=== PATIENT | male | born 1945 ===

== ENCOUNTER 2018-01-09 17:02 | Emergency (ER) | payer MEDICARE ==
[2018-01-09 17:03] VITALS: BMI 29.6
[2018-01-09] MEDS ORDERED: Sodium Chloride 0.9% 1,000 ML IV ONE (18:18)
--- NOTE | 2018-01-09 18:22 | C.PDOC ---
History Of Present Illness <SumanthShreyasMusa - Last Filed: 01/09/18 18:48> <Sanket Loo E - Last Filed: 01/09/18 19:53> 72 year old male patient presents to the ER with c/o right trapezius pain that radiates to right arm for the past 2 days. Patient states he tried putting patches on with no relief. Patient reports he is retired and denies trauma or lifting using the arm. Patient also denies significant weight changes. Pain is digitally reproducible along with chest wall pain; no trauma in that area as well. (Taye Julio) History Per: Patient History/Exam Limitations: no limitations Onset/Duration Of Symptoms: Days (x2) Current Symptoms Are (Timing): Still Present <SumanthShreyasMusa - Last Filed: 01/09/18 18:48> <Sanket Loo E - Last Filed: 01/09/18 19:53> Time Seen by Provider: 01/09/18 18:11 Chief Complaint (Nursing): Upper Extremity Problem/Injury Past Medical History Reviewed: Historical Data, Nursing Documentation, Vital Signs - Medical History PMH: Asthma, CHF, COPD, Diabetes, Diverticulitis, Emphysema, HTN, Kidney Stones , Peripheral Edema, Chronic Kidney Disease Surgical History: Coronary Stent Family History: States: Unknown Family Hx - Social History Hx Tobacco Use: No Hx Alcohol Use: No Hx Substance Use: No - Immunization History Hx Tetanus Toxoid Vaccination: No Hx Influenza Vaccination: No Hx Pneumococcal Vaccination: No <SumanthTaye - Last Filed: 01/09/18 18:48> Vital Signs: Last Vital Signs Temp 98.1 F 01/09/18 17:12 Pulse 90 01/09/18 17:12 Resp 20 01/09/18 17:12 BP 179/85 H 01/09/18 17:12 Pulse Ox 98 01/09/18 18:49 - [facility] Procedures CORONAR ARTERIOGR-2 CATH (12/01/12) ENDOSC POLYPECTOMY OF LG INTEST (12/19/12) ESOPHAGOGASTRODUODENOSCOPY [EGD] W/CLOSED BIOPSY (11/22/12) EXCISION OF ASCENDING COLON, ENDO (07/28/15) EXCISION OF SIGMOID COLON, ENDO (07/28/15) INSERTION OF ONE VASCULAR STENT (12/01/12) INSRT OF DRUG-ELUTING CORON ARTERY STENTS(S) (12/01/12) LEFT HEART CARDIAC CATH (11/29/12) LT HEART ANGIOCARDIOGRAM (11/29/12) PERCUTANEOUS TRANSLUMINAL CORONARY ANGIOPLASTY [PTCA] (12/01/12) PROCEDURE ON SINGLE VESSEL (12/01/12) Review Of Systems Except As Marked, All Systems Reviewed And Found Negative. Constitutional: Positive for: Other (no significant weight gain or loss) Musculoskeletal: Positive for: Shoulder Pain (right trapezius pain that radiates down the right arm), Other (chest wall pain) <Taye Julio - Last Filed: 01/09/18 18:48> Physical Exam - Physical Exam Appears: Well, Non-toxic, No Acute Distress, Other (elderly) Skin: Normal Color, Warm, Dry Chest: Tenderness (mild tenderness to chest wall pectoral bilaterally; pain in intercostal spaces bilaterally) Cardiovascular: Rhythm Regular Respiratory: Other (CTA bilaterally) Extremity: Tenderness (right trapezius; vague right arm tenderness), Other ( 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 ) Pulses: Left Radial: Normal, Right Radial: Normal Neurological/Psych: Oriented x3, Normal Speech Gait: Steady <Taye Julio E - Last Filed: 01/09/18 18:48> ED Course And Treatment O2 Sat by Pulse Oximetry: 98 (RA) Pulse Ox Interpretation: Normal <Taye Julio - Last Filed: 01/09/18 18:48> - Laboratory Results Result Diagrams: 01/09/18 19:05 01/09/18 19:05 Interpretation Of Abnormal: UTI, urine C&S sent. ECG: Interpreted By Me, Viewed By Me ECG Rhythm: Sinus Rhythm, Nonspecific Changes Rate From EC - Radiology CXR: Viewed By Me, Read By Radiologist CXR Interpretation: Yes: No Acute Disease Progress Note: Pt was christina out to me by Dr. Julio at 7pm to f/up labs and d/c pt home. Pt c/o inability to pull his foreskin back. On exam pt has phymosis. <Sanket Loo E - Last Filed: 01/09/18 19:53> Medical Decision Making <Taye Julio - Last Filed: 01/09/18 18:48> <Sanket Loo E - Last Filed: 01/09/18 19:53> Medical Decision Making: Impression: 72 year old male patient with right trapezius pain that radiates down right arm Plan: -- electrocardiogram -- Blood work -- CXR -- IV fluids -- UA Patient is resting comfortably. Tolerating PO. Patient offered heat treatment, but patient declined. (Taye Julio) Disposition <Taye Julio E - Last Filed: 01/09/18 18:48> Counseled Patient/Family Regarding: Studies Performed, Diagnosis, Need For Followup, Rx Given - Disposition Disposition Time: 19:48 <Sanket Loo E - Last Filed: 01/09/18 19:53> - Disposition Referrals: Carlos Heard MD [Staff Provider] - Zaire Brown MD [Staff Provider] - Disposition: HOME/ ROUTINE Condition: STABLE Additional Instructions: Follow up with your primary doctor and a Urologist within 1 week for further evaluation and treatment. Return to the ER if you develop fever, abdominal pain , scrotal pain, worsening of symptoms or if you have any other concerns. 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 - Scribe Statement The provider has reviewed the documentation as recorded by the Scribe <Taye Julio E - Last Filed: 01/09/18 18:48> <Sanket Loo E - Last Filed: 01/09/18 19:53> - Scribe Statement Mcmahan Do (Taye Julio) Provider Attestation: All medical record entries made by the Scribe were at my direction and personally dictated by me. I have reviewed the chart and agree that the record accurately reflects my personal performance of the history, physical exam, medical decision making, and the department course for this patient. I have also personally directed, reviewed, and agree with the discharge instructions and disposition. (Taye Julio)
[2018-01-09] MEDS ORDERED: Sodium Chloride 0.9% 1,000 ML ONE (18:52)
--- NOTE | 2018-01-09 18:54 | RAD ---
Date of service: 01/09/2018 HISTORY: SOB COMPARISON: Chest radiograph dated 09/08/2013. TECHNIQUE: Chest PA and lateral FINDINGS: LUNGS: No active pulmonary disease. PLEURA: No significant pleural effusion identified. No pneumothorax apparent. CARDIOVASCULAR: Atherosclerotic aortic calcifications. Cardiomediastinal silhouette within normal limits. OSSEOUS STRUCTURES: Unchanged. VISUALIZED UPPER ABDOMEN: Normal. OTHER FINDINGS: None. IMPRESSION: No active disease.
[2018-01-09 19:09] LABS: BASO # 0.1 K/uL (0.0-0.2); BASO % 0.9 % (0.0-2.0); EOS # 0.4 K/uL (0.0-0.7); EOS % 4.7 % (0.0-4.0); LYMPH # 2.4 K/uL (1.0-4.3); LYMPH % 28.4 % (20.0-40.0); MEAN CELL VOLUME 80.4 fL (80.0-94.0); MEAN CORPUSCULAR HEMOGLOBIN 27.3 pg (27.0-31.0); MEAN CORPUSCULAR HGB CONC 33.9 g/dL (33.0-37.0); MEAN PLATELET VOLUME 8.6 fL (7.2-11.7); MONO # 0.9 K/uL (0.0-0.8); NEUT # 4.8 K/uL (1.8-7.0); NRBC % 0.7 % (0.0-2.0); RBC 5.85 Mil/uL (4.40-5.90); RED CELL DISTRIBUTION WIDTH 14.7 % (11.5-14.5); WHITE BLOOD COUNT 8.6 K/uL (4.8-10.8)
[2018-01-09 19:15] LABS: SQUAMOUS EPITHIAL 8 /hpf (0-5); URINE BACTERIA RARE (<OCC); URINE BILIRUBIN NEGATIVE (NEGATIVE); URINE BLOOD NEGATIVE (NEGATIVE); URINE CLARITY Hazy (Clear); URINE COLOR Yellow (YELLOW); URINE GLUCOSE (UA) 3+ mg/dL (Normal); URINE LEUKOCYTE ESTERASE 3+ Leu/uL (Negative); URINE PROTEIN NEGATIVE (NEGATIVE)
[2018-01-09 19:20] LABS: ALB/GLOB RATIO 1.3 (1.0-2.1); ALT/SGPT 23 U/L (21-72); AST/SGOT 17 U/L (17-59); BLOOD UREA NITROGEN 8 mg/dL (9-20); CALCIUM 9.2 mg/dl (8.6-10.4); GFR AFRICAN-AMERICAN > 60; GFR NON-AFRICAN AMERICAN > 60
[2018-01-09 19:32] LABS: B-TYPE NATRIURETIC PEPTIDE 108 pg/mL (0-900)
[2018-01-09 20:14] VITALS: BP 188/90; PULSE 78; RESP 18; TEMP 98.9; O2SAT 99
--- NOTE | 2018-01-13 14:48 | CARD ---
APPROVED REPORT Date of service: 01/09/2018 EKG Measurement Heart [id number] <Conclusion> Normal sinus rhythm with sinus arrhythmia Left axis deviation Incomplete right bundle branch block Inferior infarct, age undetermined Abnormal ECG
== END 2018-01-09 20:14 | disposition home or self-care (01) ==
LOC: C.ER 17:02
DX: N39.0 Urinary tract infection, site not specified (principal); N47.1 Phimosis; M79.1 Myalgia; I13.0 Hypertensive heart and chronic kidney disease with heart failure and stage 1 through stage 4 chronic kidney disease, or unspecified chronic kidney disease; I50.9 Heart failure, unspecified; N18.9 Chronic kidney disease, unspecified; E11.22 Type 2 diabetes mellitus with diabetic chronic kidney disease
CPT/HCPCS: 71046; 80053; 81001; 83880; 84484; 85025; 87086; 87181; 93005; 96361; 96374; 99285; J1885; J7030

== ENCOUNTER 2018-03-31 18:21 | Inpatient (IN) | payer MEDICARE ==
[2018-03-31] MEDS ORDERED: Albuterol-Ipratrop 3 mg / 0.5 (3 ml) UD ONE (18:29)
[2018-03-31 18:31] VITALS: BMI 28.3
[2018-03-31] MEDS ORDERED: Albuterol-Ipratrop 3 mg / 0.5 (3 ml) UD INH STA (18:33)
[2018-03-31] MEDS ORDERED: Nitroglycerin 2% Ointment Foilpak UD TOP STA (18:35)
[2018-03-31] MEDS ORDERED: Nitroglycerin 2% Ointment Foilpak UD TOP ONE (18:45)
--- NOTE | 2018-03-31 19:00 | C.PDOC ---
History Of Present Illness 72 year old male presents to the ED for evaluation of shortness of breath which has been ongoing for one week. Patient states pain has been worsening since onset. He has been using his albuterol nebulizer almost continuously without relief. Patient also complains of leg swelling and joint pain for the past week. Patient reports cough that is productive of white sputum. Patient states his shortness of breath is worse with any exertion and has been in bed for the past day. Most history is obtained via patient's daughter. She states patient has history of HTN, DM, COPD and coronary art disease. Patient underwent catherterization [place] [address] Kimball. Daughter is unsure if patient has been compliant with his medications. social history: no smoking family history: none Time Seen by Provider: 03/31/18 18:27 Chief Complaint (Nursing): Shortness Of Breath Past Medical History Vital Signs: Last Vital Signs Temp Pulse 102 H 03/31/18 18:30 Resp 24 03/31/18 18:30 BP 116/110 H 03/31/18 18:30 Pulse Ox 95 03/31/18 18:30 - Medical History PMH: Asthma, CHF, COPD, Diabetes, Diverticulitis, Emphysema, HTN, Kidney Stones, Peripheral Edema, Chronic Kidney Disease Surgical History: Coronary Stent (X2 PER DAUGHTER) - [facility] Procedures CORONAR ARTERIOGR-2 CATH (12/01/12) ENDOSC POLYPECTOMY OF LG INTEST (12/19/12) ESOPHAGOGASTRODUODENOSCOPY [EGD] W/CLOSED BIOPSY (11/22/12) EXCISION OF ASCENDING COLON, ENDO (07/28/15) EXCISION OF SIGMOID COLON, ENDO (07/28/15) INSERTION OF ONE VASCULAR STENT (12/01/12) INSRT OF DRUG-ELUTING CORON ARTERY STENTS(S) (12/01/12) LEFT HEART CARDIAC CATH (11/29/12) LT HEART ANGIOCARDIOGRAM (11/29/12) PERCUTANEOUS TRANSLUMINAL CORONARY ANGIOPLASTY [PTCA] (12/01/12) PROCEDURE ON SINGLE VESSEL (12/01/12) Family History: States: Unknown Family Hx - Social History Hx Tobacco Use: No Hx Alcohol Use: No Hx Substance Use: No - Immunization History Hx Tetanus Toxoid Vaccination: No Hx Influenza Vaccination: No Hx Pneumococcal Vaccination: No Physical Exam - Physical Exam Appears: Non-toxic, Chronically Ill, Other (in acute respiratory ditress ) Skin: Warm, Dry Head: Atraumatic, Normacephalic Oral Mucosa: Moist Lips: No Swelling Neck: Normal ROM, Trachea Midline Lymphatic: No Adenopathy Cardiovascular: Rhythm Regular, Other (tachycardia ) Respiratory: No Accessory Muscle Use, Rales, Rhonchi, Wheezing (bilaterally ) Gastrointestinal/Abdominal: Soft, No Tenderness Back: Normal Inspection, No Decreased ROM Extremity: Pedal Edema, Other (bilateral 1+ pitting edema to bilateral lower extremities ) Neurological/Psych: Oriented x3, Normal Motor, Normal Sensation ED Course And Treatment - Laboratory Results Result Diagrams: 03/31/18 19:01 03/31/18 19:01 ECG: Interpreted By Me ECG Rhythm: Sinus Rhythm (96), Nonspecific Changes (but no st elevations or de pressions) O2 Sat by Pulse Oximetry: 95 (on RA) Pulse Ox Interpretation: Normal - Radiology CXR: Interpreted by Me CXR Interpretation: Yes: No Acute Disease Medical Decision Making Medical Decision Making: Impression: shortness of breath Differential diagnoses include but are not limited to: acute CHF, ACS, COPD exacerbation, pneumonia, bronchitis Progress: Bloodwork, CXR, EKG ordered and reviewed. Albuterol INH, Lasix IVP, Solu-medrol IVP and Nitroglycerin TOP given. 20:00 On reassessment, patient states he is feeling slightly better. Patient still demonstrates dyspnea, has bilateral rhonchi and wheezing on examination. Labs unremarkable (ABG with derangements that are not c/w chemistry.) Case discussed with Dr. Loaiza, who will admit patient for COPD exacerbation. Disposition Counseled Patient/Family Regarding: Studies Performed, Diagnosis - Disposition Disposition: HOSPITALIZED Disposition Time: 21:00 Condition: GUARDED - POA Present On Arrival: None - Clinical Impression Clinical Impression: COPD exacerbation - Scribe Statement The provider has reviewed the documentation as recorded by the Scribe (Johanna Borrego) Provider Attestation: All medical record entries made by the Scribe were at my direction and personally dictated by me. I have reviewed the chart and agree that the record accurately reflects my personal performance of the history, physical exam, medical decision making, and the department course for this patient. I have also personally directed, reviewed, and agree with the discharge instructions and disposition. Critical Care Time - Critical Care Note Total Time (in mins): 30 Documented critical care: time excludes all time spent performing seperately billable procedures.
[2018-03-31 19:07] LABS: BASO # 0.1 K/uL (0.0-0.2); BASO % 0.8 % (0.0-2.0); EOS # 0.3 K/uL (0.0-0.7); EOS % 3.8 % (0.0-4.0); HEMOGLOBIN 15.2 g/dL (12.0-18.0); LYMPH # 2.5 K/uL (1.0-4.3); LYMPH % 27.5 % (20.0-40.0); MEAN CELL VOLUME 81.4 fL (80.0-94.0); MEAN CORPUSCULAR HEMOGLOBIN 27.9 pg (27.0-31.0); MEAN CORPUSCULAR HGB CONC 34.3 g/dL (33.0-37.0); MEAN PLATELET VOLUME 8.1 fL (7.2-11.7); MONO # 0.3 K/uL (0.0-0.8); MONO % 3.1 % (0.0-10.0); NEUT # 5.9 K/uL (1.8-7.0); NEUT % 64.8 % (50.0-75.0); NRBC % 0.1 % (0.0-2.0); RBC 5.42 Mil/uL (4.40-5.90); RED CELL DISTRIBUTION WIDTH 15.6 % (11.5-14.5)
[2018-03-31 19:15] LABS: INR 1.2; PROTHROMBIN TIME 13.1 SECONDS (9.7-12.2)
[2018-03-31 19:18] LABS: ALB/GLOB RATIO 1.2 (1.0-2.1); ALBUMIN 4.1 g/dL (3.5-5.0); ALT/SGPT 18 U/L (21-72); AST/SGOT 20 U/L (17-59); BLOOD UREA NITROGEN 12 mg/dL (9-20); CALCIUM 9.6 mg/dl (8.6-10.4); GFR NON-AFRICAN AMERICAN > 60
[2018-03-31 19:21] LABS: ABG ALLEN TEST P; ARTERIAL BLOOD GAS HCO3 19.2 mmol/L (21-28); ARTERIAL BLOOD GAS O2 SAT 89.7 % (95-98); ARTERIAL BLOOD GAS PCO2 19 mm/Hg (35-45); ARTERIAL BLOOD GAS PH 7.48 (7.35-7.45); ARTERIAL BLOOD GAS PO2 46 mm/Hg (80-100); ARTERIAL BLOOD GAS TCO2 14.7 mmol/L (22-28)
[2018-03-31 19:29] LABS: B-TYPE NATRIURETIC PEPTIDE 85.4 pg/mL (0-900)
[2018-04-01] MEDS: MethylPREDNISolone 40 mg Vial IVP SCH ×2 (00:07→05:17)
[2018-04-01] MEDS: Albuterol-Ipratrop 3 mg / 0.5 (3 ml) UD INH SCH ×4 (07:10→19:59)
--- NOTE | 2018-04-01 07:48 | RAD ---
Date of service: 03/31/2018 HISTORY: sob COMPARISON: Chest radiographs 01/09/2018. FINDINGS: LUNGS: No active pulmonary disease. PLEURA: No significant pleural effusion identified, no pneumothorax apparent. CARDIOVASCULAR: Normal. OSSEOUS STRUCTURES: No significant abnormalities. VISUALIZED UPPER ABDOMEN: Normal. OTHER FINDINGS: None. IMPRESSION: No interval acute cardiopulmonary disease appreciated.
[2018-04-01] MEDS: (Novolog) Insulin Aspart, Recombinant 100 u/ml 10 ml vial SC SCH ×4 (08:29→21:48)
--- NOTE | 2018-04-01 10:38 | CP.PCM.PN ---
Subjective - Date & Time of Evaluation Date of Evaluation: 04/01/18 Time of Evaluation: 07:00 - Subjective Subjective: Patient is a 72 year old male with PMHx of HTN, DMII, COPD, and CAD who presents for 1 week of worsening shortness of breath. Patient said yesterday he felt like he could not catch his breath so he came into the ER. Patient does not know his past medical history well and says his daughter, whom he lives with, takes care of his medical care. Patient says his breathing feels better today. Patient denies headache, chest pain, shortness of breath, abdominal pain, nausea, vomiting, constipation, or diarrhea. 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 Meds: not compliant with home medications Objective - Vital Signs/Intake and Output Vital Signs (last 24 hours): Temp Pulse Resp BP Pulse Ox 97.0 F L 85 20 113/66 97 04/01/18 07:00 04/01/18 07:00 04/01/18 07:00 04/01/18 07:00 04/01/18 07:00 - Medications Medications: Current Medications Albuterol/Ipratropium (Duoneb 3 Mg/0.5 Mg (3 Ml) Ud) 3 ml INH RQ4 [facility] Last Admin: 04/01/18 07:10 Dose: 3 ml Aspirin (Ecotrin) 81 mg PO DAILY [facility] Enoxaparin Sodium (Lovenox) 40 mg SC DAILY [facility] Glimepiride (Amaryl) 2 mg PO DAILY [facility] Influenza Virus Vaccine (Fluzone Quad [id number]) 60 mcg IM .ONCE ONE Stop: 04/02/18 10:01 Insulin Aspart (Novolog) 0 unit SC ACHS [facility]; Protocol Last Admin: 04/01/18 08:29 Dose: 3 u Lisinopril (Zestril) 5 mg PO DAILY [facility] Methylprednisolone (Solu-Medrol) 40 mg IVP Q6 [facility] Last Admin: 04/01/18 05:17 Dose: 40 mg Pantoprazole Sodium (Protonix Ec Tab) 40 mg PO DAILY [facility] Rosuvastatin Calcium (Crestor) 5 mg PO HS [facility] Sitagliptin Phosphate (Januvia) 100 mg PO DAILY [facility] - Labs Labs: 03/31/18 19:01 03/31/18 19:01 PT 13.1 SECONDS (9.7-12.2) H 03/31/18 19:01 INR 1.2 03/31/18 19:01 APTT 35 SECONDS (21-34) H 03/31/18 19:01 - Constitutional Appears: Non-toxic, No Acute Distress - Head Exam Head Exam: ATRAUMATIC, NORMAL INSPECTION, NORMOCEPHALIC - Eye Exam Eye Exam: EOMI, Normal appearance - ENT Exam ENT Exam: Mucous Membranes Moist - Respiratory Exam Respiratory Exam: Decreased Breath Sounds, Rhonchi - Cardiovascular Exam Cardiovascular Exam: REGULAR RHYTHM, RRR, +S1, +S2 - GI/Abdominal Exam GI & Abdominal Exam: Soft, Normal Bowel Sounds. absent: Tenderness - Extremities Exam Extremities Exam: Full ROM, Normal Inspection. absent: Pedal Edema - Neurological Exam Neurological Exam: Alert, Awake, Oriented x3 - Psychiatric Exam Psychiatric exam: Normal Affect, Normal Mood - Skin Skin Exam: Intact, Normal Color, Warm Assessment and Plan - Assessment and Plan (Free Text) Assessment: COPD Exacerbation Duonebs q4h [facility]ani Solumedrol 40mg ivp q6h decreased to daily Cxray: no interval acute cardiopulmonary disease appreciated CAD ASA 81mg po daily Crestor 5mg po HS f/u lipid panel DMII f/u HgA1C accuchecks achs hypoglycemia protocol ISS- low Januvia 100mg po daily Glimepiride 2mg po daily HTN Lisinopril 5mg po daily Prophylaxis Lovenox 40mg sc daily SCDs Management as per Dr. Heard
[2018-04-01] MEDS: Pantoprazole 40 mg EC Tab PO SCH (10:45)
[2018-04-01] MEDS: Enoxaparin 40 mg Syringe SC SCH (10:45)
[2018-04-01] MEDS ORDERED: Glucagon Recombinant 1 mg Inj IM PRN (11:32)
[2018-04-01] MEDS ORDERED: Dextrose 50% SYRINGE Inj (50 ml) IV PRN (11:32)
[2018-04-01 11:54] LABS: BASO % 0.1 % (0.0-2.0); HEMOGLOBIN 14.8 g/dL (12.0-18.0); LYMPH # 0.6 K/uL (1.0-4.3); LYMPH % 9.3 % (20.0-40.0); MEAN CELL VOLUME 80.1 fL (80.0-94.0); MEAN CORPUSCULAR HEMOGLOBIN 28.3 pg (27.0-31.0); MEAN CORPUSCULAR HGB CONC 35.3 g/dL (33.0-37.0); MEAN PLATELET VOLUME 8.5 fL (7.2-11.7); MONO % 0.6 % (0.0-10.0); NEUT # 5.9 K/uL (1.8-7.0); NRBC % 0.1 % (0.0-2.0); PLATELET COUNT 219 K/uL (130-400); RBC 5.22 Mil/uL (4.40-5.90); RED CELL DISTRIBUTION WIDTH 15.1 % (11.5-14.5); WHITE BLOOD COUNT 6.5 K/uL (4.8-10.8)
[2018-04-01 12:19] LABS: ALB/GLOB RATIO 1.4 (1.0-2.1); ALBUMIN 4.1 g/dL (3.5-5.0); ALT/SGPT 19 U/L (21-72); AST/SGOT 15 U/L (17-59); BLOOD UREA NITROGEN 24 mg/dL (9-20); CALCIUM 9.5 mg/dl (8.6-10.4); GFR NON-AFRICAN AMERICAN > 60
[2018-04-01 12:34] LABS: BANDS 2 % (0-2); LYMPHOCYTE 7 % (20-40); NEUTROPHIL 91 % (50-75); TOTAL CELLS COUNTED 100
[2018-04-01 12:35] LABS: PLATELET ESTIMATE NORMAL (NORMAL)
[2018-04-01 14:12] LABS: HDL CHOLESTEROL 36 mg/dL (30-70)
[2018-04-01 14:24] LABS: LDL CHOLESTEROL 140 mg/dL (0-129)
[2018-04-02] MEDS: Albuterol-Ipratrop 3 mg / 0.5 (3 ml) UD INH SCH ×6 (00:30→19:09)
--- NOTE | 2018-04-02 07:01 | HP ---
HISTORY OF PRESENT ILLNESS: A 72-year-old male admitted to the hospital with chief complaints of shortness of breath, weakness, fatigue, tiredness,. The patient has history of COPD, diabetes, hypertension and coronary artery disease. PHYSICAL EXAMINATION: GENERAL: The patient awake, alert, and oriented. VITAL SIGNS: Temperature is 98, pulse 90. HEENT: Within normal limits. NECK: Supple. CHEST: Symmetrical. HEART: Regular. ABDOMEN: Soft. EXTREMITIES: No edema. ASSESSMENT AND PLAN: The patient suffers from chronic obstructive pulmonary disease, bronchitis, noncompliance, diabetes. The patient to get bed rest, bronchodilator, supportive care . Carlos Heard MD
[2018-04-02 07:39] LABS: ALB/GLOB RATIO 1.3 (1.0-2.1); ALBUMIN 3.7 g/dL (3.5-5.0); ALT/SGPT 22 U/L (21-72); AST/SGOT 15 U/L (17-59); BLOOD UREA NITROGEN 24 mg/dL (9-20); CALCIUM 8.7 mg/dl (8.6-10.4); GFR NON-AFRICAN AMERICAN > 60
--- NOTE | 2018-04-02 08:00 | CP.PCM.PN ---
Subjective - Date & Time of Evaluation Date of Evaluation: 04/02/18 Time of Evaluation: 07:59 - Subjective Subjective: Medicine Progress Note - Dr Heard Patient seen and examined at bedside. Per nursing no acute events overnight. Patient states that shortness of breath is improving. He states that he has been having pain is his legs for the past 3 days. Pain is located in the left calf and describes it as a cramping feeling. Pain is worse with ambulation. Denies fevers, chills, headaches, dizziness, cp, palpitations, abdominal pain, urinary symptoms. Objective - Vital Signs/Intake and Output Vital Signs (last 24 hours): Temp Pulse Resp BP Pulse Ox 97.5 F L 89 20 108/58 L 95 04/01/18 23:20 04/02/18 00:00 04/01/18 23:20 04/01/18 23:20 04/01/18 23:20 - Medications Medications: Current Medications Albuterol/Ipratropium (Duoneb 3 Mg/0.5 Mg (3 Ml) Ud) 3 ml INH RQ4 [facility] Last Admin: 04/02/18 04:40 Dose: 3 ml Aspirin (Ecotrin) 81 mg PO DAILY [facility] Last Admin: 04/01/18 10:45 Dose: 81 mg Dextrose (Dextrose 50% Inj) 0 ml IV STAT PRN; Protocol PRN Reason: Hypoglycemia Protocol Dextrose (Glutose 15) 0 gm PO ONCE PRN; Protocol PRN Reason: Hypoglycemia Protocol Enoxaparin Sodium (Lovenox) 40 mg SC DAILY [facility] Last Admin: 04/01/18 10:45 Dose: 40 mg Glimepiride (Amaryl) 2 mg PO DAILY [facility] Last Admin: 04/01/18 10:45 Dose: 2 mg Glucagon (Glucagen Diagnostic Kit) 0 mg IM STAT PRN; Protocol PRN Reason: Hypoglycemia Protocol Dextrose (Dextrose 5% In Water 1000 Ml) 1,000 mls @ 0 mls/hr IV .Q0M PRN; Donald col PRN Reason: Hypoglycemia Protocol Influenza Virus Vaccine (Fluzone Quad [id number]) 60 mcg IM .ONCE ONE Stop: 04/02/18 10:01 Insulin Aspart (Novolog) 0 unit SC ACHS [facility]; Protocol Last Admin: 04/01/18 21:48 Dose: Not Given Lisinopril (Zestril) 5 mg PO DAILY [facility] Last Admin: 04/01/18 10:45 Dose: 5 mg Methylprednisolone (Solu-Medrol) 40 mg IVP DAILY [facility] Pantoprazole Sodium (Protonix Ec Tab) 40 mg PO DAILY [facility] Last Admin: 04/01/18 10:45 Dose: 40 mg Rosuvastatin Calcium (Crestor) 5 mg PO HS [facility] Last Admin: 04/01/18 21:58 Dose: 5 mg Sitagliptin Phosphate (Januvia) 100 mg PO DAILY [facility] Last Admin: 04/01/18 10:47 Dose: 100 mg - Labs Labs: 04/01/18 11:49 04/02/18 07:11 PT 13.1 SECONDS (9.7-12.2) H 03/31/18 19:01 INR 1.2 03/31/18 19:01 APTT 35 SECONDS (21-34) H 03/31/18 19:01 - Constitutional Appears: Non-toxic, No Acute Distress - Head Exam Head Exam: ATRAUMATIC, NORMAL INSPECTION, NORMOCEPHALIC - Eye Exam Eye Exam: EOMI, Normal appearance Pupil Exam: NORMAL ACCOMODATION - ENT Exam ENT Exam: Mucous Membranes Moist - Neck Exam Neck Exam: Full ROM - Respiratory Exam Respiratory Exam: Wheezes, NORMAL BREATHING PATTERN. absent: Rales, Rhonchi - Cardiovascular Exam Cardiovascular Exam: REGULAR RHYTHM, +S1, +S2 - GI/Abdominal Exam GI & Abdominal Exam: Soft. absent: Tenderness - Extremities Exam Extremities Exam: Full ROM. absent: Joint Swelling, Pedal Edema Additional comments: +left calf tenderness - Back Exam Back Exam: NORMAL INSPECTION - Neurological Exam Neurological Exam: Alert, Awake, Oriented x3 - Psychiatric Exam Psychiatric exam: Normal Affect, Normal Mood - Skin Skin Exam: Dry, Normal Color, Warm Assessment and Plan - Assessment and Plan (Free Text) Assessment: COPD Exacerbation -Stable, afebrile -Duonebs q4h [facility] -Solumedrol 40mg IVP daily -Cxray: no interval acute cardiopulmonary disease appreciated Leukocytosis -WBC 15.5 today -Likely secondary to steroid use -Continue to monitor Hypokalemia -Potassium 3.1 today -Given Kcl 40 meq x 1 -F/U repeat BMP Bilateral Lower extremity pain -F/U venous dopplers Unsteady Gait -Physical therapy evaluation ordered, f/u recommendations CAD -ASA 81mg po daily -Crestor 5mg PO HS DMII -A1C 6.8 -Heidy VINCENT -Hypoglycemia protocol -ISS-low dose -Continue Januvia 100mg PO daily -Continue Glimepiride 2mg PO daily HTN -Lisinopril 5mg PO daily Prophylaxis -Lovenox 40mg sc daily -Protonix 40mg PO daily Management as per Dr. Félix Wolf DO PGY-2
[2018-04-02 08:05] LABS: BASO % 0.1 % (0.0-2.0); EOS % 0.3 % (0.0-4.0); HEMOGLOBIN 13.8 g/dL (12.0-18.0); MEAN CELL VOLUME 80.4 fL (80.0-94.0); MEAN CORPUSCULAR HEMOGLOBIN 28.1 pg (27.0-31.0); MEAN PLATELET VOLUME 8.5 fL (7.2-11.7); MONO # 0.2 K/uL (0.0-0.8); MONO % 1.6 % (0.0-10.0); NEUT # 13.2 K/uL (1.8-7.0); NRBC % 0.1 % (0.0-2.0); RBC 4.91 Mil/uL (4.40-5.90); RED CELL DISTRIBUTION WIDTH 15.2 % (11.5-14.5)
[2018-04-02 08:06] LABS: WHITE BLOOD COUNT 15.5 K/uL (4.8-10.8)
[2018-04-02] MEDS: (Novolog) Insulin Aspart, Recombinant 100 u/ml 10 ml vial SC SCH ×3 (08:30→22:13)
[2018-04-02] MEDS ORDERED: Potassium Chloride 20 mEq ER Tab PO ONE (09:14)
[2018-04-02] MEDS ORDERED: Influenza Vaccine 60 MCG/0.5 ML SYR (3 yr & up) IM ONE (10:00)
[2018-04-02] MEDS: Enoxaparin 40 mg Syringe SC SCH (10:19)
[2018-04-02] MEDS: Pantoprazole 40 mg EC Tab PO SCH (10:19)
[2018-04-02] MEDS: MethylPREDNISolone 40 mg Vial IVP SCH (10:25)
[2018-04-03] MEDS: Albuterol-Ipratrop 3 mg / 0.5 (3 ml) UD INH SCH ×4 (00:47→11:35)
[2018-04-03 06:40] LABS: BASO % 0.2 % (0.0-2.0); EOS # 0.1 K/uL (0.0-0.7); EOS % 0.4 % (0.0-4.0); LYMPH # 1.9 K/uL (1.0-4.3); LYMPH % 15.3 % (20.0-40.0); MEAN CELL VOLUME 81.6 fL (80.0-94.0); MEAN CORPUSCULAR HEMOGLOBIN 28.1 pg (27.0-31.0); MEAN CORPUSCULAR HGB CONC 34.4 g/dL (33.0-37.0); MEAN PLATELET VOLUME 8.5 fL (7.2-11.7); MONO # 0.4 K/uL (0.0-0.8); MONO % 3.3 % (0.0-10.0); NEUT # 9.8 K/uL (1.8-7.0); NEUT % 80.8 % (50.0-75.0); NRBC % 0.1 % (0.0-2.0); RBC 4.98 Mil/uL (4.40-5.90); RED CELL DISTRIBUTION WIDTH 15.5 % (11.5-14.5); WHITE BLOOD COUNT 12.1 K/uL (4.8-10.8)
[2018-04-03 07:09] LABS: ALB/GLOB RATIO 1.3 (1.0-2.1); ALBUMIN 3.8 g/dL (3.5-5.0); ALT/SGPT 22 U/L (21-72); AST/SGOT 14 U/L (17-59); BLOOD UREA NITROGEN 19 mg/dL (9-20); GFR NON-AFRICAN AMERICAN > 60
--- NOTE | 2018-04-03 07:10 | CP.PCM.PN ---
Subjective - Date & Time of Evaluation Date of Evaluation: 04/03/18 Time of Evaluation: 07:10 - Subjective Subjective: Medicine Progress Note - Dr Heard Patient seen and examined at bedside. Per nursing no acute events overnight. Patient states that shortness of breath is improving. He still reports having leg pain and generalized body aches. Offers no other complaints at this time. Denies headaches, dizziness, cp, palpitations, fevers/chills, nausea/vomiting, abdominal pain, urinary symptoms, changes in bowel habits. Objective - Vital Signs/Intake and Output Vital Signs (last 24 hours): Temp Pulse Resp BP Pulse Ox 97.7 F 96 H 20 148/81 100 04/03/18 05:14 04/03/18 05:14 04/03/18 05:14 04/03/18 05:14 04/03/18 05:14 Intake and Output: 04/03/18 04/03/18 06:59 18:59 Intake Total 320 Balance 320 - Medications Medications: Current Medications Albuterol/Ipratropium (Duoneb 3 Mg/0.5 Mg (3 Ml) Ud) 3 ml INH RQ4 [facility] Last Admin: 04/03/18 04:05 Dose: 3 ml Aspirin (Ecotrin) 81 mg PO DAILY [facility] Last Admin: 04/02/18 10:19 Dose: 81 mg Dextrose (Dextrose 50% Inj) 0 ml IV STAT PRN; Protocol PRN Reason: Hypoglycemia Protocol Dextrose (Glutose 15) 0 gm PO ONCE PRN; Protocol PRN Reason: Hypoglycemia Protocol Enoxaparin Sodium (Lovenox) 40 mg SC DAILY [facility] Last Admin: 04/02/18 10:19 Dose: 40 mg Glimepiride (Amaryl) 2 mg PO DAILY [facility] Last Admin: 04/02/18 10:19 Dose: 2 mg Glucagon (Glucagen Diagnostic Kit) 0 mg IM STAT PRN; Protocol PRN Reason: Hypoglycemia Protocol Dextrose (Dextrose 5% In Water 1000 Ml) 1,000 mls @ 0 mls/hr IV .Q0M PRN; Protocol PRN Reason: Hypoglycemia Protocol Insulin Aspart (Novolog) 0 unit SC ACHS [facility]; Protocol Last Admin: 04/02/18 22:13 Dose: Not Given Lisinopril (Zestril) 5 mg PO DAILY [facility] Last Admin: 04/02/18 10:19 Dose: 5 mg Methylprednisolone (Solu-Medrol) 40 mg IVP DAILY [facility] Last Admin: 04/02/18 10:25 Dose: 40 mg Pantoprazole Sodium (Protonix Ec Tab) 40 mg PO DAILY [facility] Last Admin: 04/02/18 10:19 Dose: 40 mg Rosuvastatin Calcium (Crestor) 5 mg PO HS [facility] Last Admin: 04/02/18 22:11 Dose: 5 mg Sitagliptin Phosphate (Januvia) 100 mg PO DAILY [facility] Last Admin: 04/02/18 10:22 Dose: 100 mg - Labs Labs: 04/03/18 06:31 04/03/18 06:31 PT 13.1 SECONDS (9.7-12.2) H 03/31/18 19:01 INR 1.2 03/31/18 19:01 APTT 35 SECONDS (21-34) H 03/31/18 19:01 - Additional Findings Additional findings: - Constitutional Appears: Non-toxic, No Acute Distress - Head Exam Head Exam: ATRAUMATIC, NORMAL INSPECTION, NORMOCEPHALIC - Eye Exam Eye Exam: EOMI, Normal appearance Pupil Exam: NORMAL ACCOMODATION - ENT Exam ENT Exam: Mucous Membranes Moist - Neck Exam Neck Exam: Full ROM - Respiratory Exam Respiratory Exam: Wheezes, NORMAL BREATHING PATTERN. absent: Rales, Rhonchi - Cardiovascular Exam Cardiovascular Exam: REGULAR RHYTHM, +S1, +S2 - GI/Abdominal Exam GI & Abdominal Exam: Soft. absent: Tenderness - Extremities Exam Extremities Exam: Full ROM. absent: Joint Swelling, Pedal Edema Additional comments: +left calf tenderness - Back Exam Back Exam: NORMAL INSPECTION - Neurological Exam Neurological Exam: Alert, Awake, Oriented x3 - Psychiatric Exam Psychiatric exam: Normal Affect, Normal Mood - Skin Skin Exam: Dry, Normal Color, Warm Assessment and Plan - Assessment and Plan (Free Text) Assessment: COPD Exacerbation -Stable, afebrile -Duonebs q4h [facility] -Solumedrol 40mg IVP daily - we will discharge on medrol dose jesu -Cxray: no interval acute cardiopulmonary disease appreciated Leukocytosis -WBC trending down -Likely secondary to steroid use -Continue to monitor Hypokalemia -Resolved Bilateral Lower extremity pain -Venous dopplers negative for DVT -Started on Gabapentin 300mg PO BID Unsteady Gait -Physical therapy evaluation ordered -Recommending subacute rehab, patient wants home PT -We will follow up CAD -ASA 81mg PO daily -Crestor 5mg PO HS DMII -A1C 6.8 -Heidy VINCENT -Hypoglycemia protocol -ISS-low dose -Continue Januvia 100mg PO daily -Continue Glimepiride 2mg PO daily HTN -Lisinopril 5mg PO daily Prophylaxis -Lovenox 40mg sc daily -Protonix 40mg PO daily Management as per Dr. Félix Wolf DO PGY-2
[2018-04-03] MEDS: (Novolog) Insulin Aspart, Recombinant 100 u/ml 10 ml vial SC SCH ×2 (07:35→11:56)
[2018-04-03 08:44] VITALS: BP 164/77; RESP 18; TEMP 98.8; O2SAT 98
[2018-04-03] MEDS: Enoxaparin 40 mg Syringe SC SCH (10:20)
[2018-04-03] MEDS: MethylPREDNISolone 40 mg Vial IVP SCH (10:30)
[2018-04-03] MEDS: Pantoprazole 40 mg EC Tab PO SCH (10:31)
--- NOTE | 2018-04-03 12:18 | VASCLAB ---
Date of service: 04/02/2018 PROCEDURE: Lower Extremity Venous Duplex Exam. HISTORY: Leg swelling PRIORS: None. TECHNIQUE: Bilateral common femoral, femoral, popliteal and posterior tibial, peroneal and great saphenous veins were evaluated. Flow was assessed with color Doppler, compressibility, assessment of phasic flow and augmentation response. Report prepared by LASHAE Tate FINDINGS: RIGHT: 1. Common Femoral Vein: 1.1. Compressibility - Fully compressible: Thrombus - None : Flow - Phasic: Augmentation -Normal: Reflux - None. 2. Femoral Vein: 2.1. Compressibility - Fully compressible: Thrombus - None : Flow - Phasic: Augmentation -Normal: Reflux - None. 3. Popliteal Vein: 3.1. Compressibility - Fully compressible: Thrombus - None : Flow - Phasic: Augmentation -Normal: Reflux - None. 4. Posterior Tibial Vein: 4.1. Compressibility - Fully compressible: Thrombus - None: Flow - Phasic: Augmentation -Normal: Reflux - None. 5. Peroneal Vein: 5.1. Compressibility - Fully compressible: Thrombus - None: Flow - Phasic: Augmentation -Normal: Reflux - None. 6. Great Saphenous Vein: 6.1. Compressibility - Fully compressible: Thrombus - None: Flow - Phasic: Augmentation - Normal: Reflux - None. LEFT: 1. Common Femoral Vein: 1.1. Compressibility - Fully compressible: Thrombus - None: Flow - Phasic: Augmentation -Normal: Reflux - None. 2. Femoral Vein: 2.1. Compressibility - Fully compressible: Thrombus - None: Flow - Phasic: Augmentation -Normal: Reflux - None. 3. Popliteal Vein: 3.1. Compressibility - Fully compressible: Thrombus - None : Flow - Phasic: Augmentation -Normal: Reflux - None. 4. Posterior Tibial Vein: 4.1. Compressibility - Fully compressible: Thrombus - None: Flow - Phasic: Augmentation -Normal: Reflux - None. 5. Peroneal Vein: 5.1. Compressibility - Fully compressible: Thrombus - None: Flow - Phasic: Augmentation -Normal: Reflux - None. 6. Great Saphenous Vein: 6.1. Compressibility - Fully compressible: Thrombus - None: Flow - Phasic: Augmentation - Normal: Reflux - None. OTHER FINDINGS: Right: None significant. Left: None significant. IMPRESSION: Right: No evidence of deep or superficial vein thrombosis of the right lower extremity. Normal valve function noted of the right side. Left: No evidence of deep or superficial vein thrombosis of the left lower extremity. Normal valve function noted of the left side.
[2018-04-03 14:37] VITALS: PULSE 90
--- NOTE | 2018-04-03 21:36 | CARD ---
APPROVED REPORT Date of service: 04/03/2018 EXAM: Two-dimensional and M-mode echocardiogram with Doppler and color Doppler. Other Information Quality : GoodRhythm : INDICATION Dyspnea Congestive Heart Failure RISK FACTORS Hypertension Diabetes 2D DIMENSIONS IVSd1.2 (0.7-1.1cm)LVDd4.1 (3.9-5.9cm) PWd1.2 (0.7-1.1cm)LA [id number] (18-58mL) LVDs2.5 (2.5-4.0cm)FS (%) 39.5 % LVEF (%)70.5 (>50%) M-Mode DIMENSIONS Left Atrium (MM)3.44 (2.5-4.0cm)IVSd0.90 (0.7-1.1cm) Aortic Root3.37 (2.2-3.7cm)LVDd4.69 (4.0-5.6cm) Aortic Cusp Exc.1.95 (1.5-2.0cm)PWd0.90 (0.7-1.1cm) FS (%) 36 %LVDs3.02 (2.0-3.8cm) LVEF (%)65 (>50%) Mitral Valve MV E Dyxnybcv857.3cm/sMV A Kwvzhxkr628.2cm/sE/A ratio0.9 TDI Lateral E' Peak V9.90cm/sMedial E' Peak V8.74cm/sE/Lateral E'12.2 E/Medial E'13.8 Tricuspid Valve TR Peak Sfwlidwm295cd/sTR Peak Gr.54wbDfSPOR74poEn LEFT VENTRICLE The left ventricle is normal size. There is mild concentric left ventricular hypertrophy. The left ventricular function is normal. The left ventricular ejection fraction is within the normal range. About 65% No regional wall motion abnormalities noted. The left ventricular diastolic function is indeterminate No left ventricle thrombus noted on this study. There is no ventricular septal defect visualized. There is no left ventricular aneurysm. There is no mass noted in the left ventricle. RIGHT VENTRICLE The right ventricle is normal size. There is normal right ventricular wall thickness. The right ventricular systolic function is normal. ATRIA The left atrium size is normal. The right atrium size is normal. The interatrial septum is intact with no evidence for an atrial septal defect. AORTIC VALVE The aortic valve is normal in structure and function. No aortic regurgitation is present. There is no aortic valvular stenosis. There is no aortic valvular vegetation. MITRAL VALVE The mitral valve is normal in structure and function. There is no evidence of mitral valve prolapse. There is no mitral valve stenosis. There is no mitral valve regurgitation noted. TRICUSPID VALVE The tricuspid valve is normal in structure and function. There is no tricuspid valve regurgitation noted. There is no tricuspid valve prolapse or vegetation. There is no tricuspid valve stenosis. PULMONIC VALVE The pulmonary valve is normal in structure and function. There is no pulmonic valvular regurgitation. There is no pulmonic valvular stenosis. GREAT VESSELS The aortic root is normal in size. The ascending aorta is normal in size. The pulmonary artery is normal. The IVC is normal in size and collapses >50% with inspiration. PERICARDIAL EFFUSION The pericardium appears normal. There is no pleural effusion. <Conclusion> The left ventricular function is normal. There is mild concentric left ventricular hypertrophy. Normal Doppler.
--- NOTE | 2018-04-04 06:40 | CARD ---
APPROVED REPORT Date of service: 03/31/2018 EKG Measurement Heart [id number] <Conclusion> Normal sinus rhythm Possible Left atrial enlargement Left axis deviation Pulmonary disease pattern Inferior infarct, age undetermined Abnormal ECG
== END 2018-04-03 13:49 | disposition home or self-care (01) | DRG 191 ==
LOC: C.ER 18:21 → C.9E 20:10 → C.6T 21:00 → OBSVTOIN 04-02 12:33
PROVIDERS: ADMIT Internal Medicine Pulmonary Disease; ATTEND Internal Medicine Pulmonary Disease
DX: J44.1 Chronic obstructive pulmonary disease with (acute) exacerbation (principal); I13.0 Hypertensive heart and chronic kidney disease with heart failure and stage 1 through stage 4 chronic kidney disease, or unspecified chronic kidney disease; E87.6 Hypokalemia; E11.22 Type 2 diabetes mellitus with diabetic chronic kidney disease; N18.9 Chronic kidney disease, unspecified; I50.9 Heart failure, unspecified; I25.10 Atherosclerotic heart disease of native coronary artery without angina pectoris; Z79.84 Long term (current) use of oral hypoglycemic drugs; Z87.891 Personal history of nicotine dependence; Z91.14 Patient's other noncompliance with medication regimen; Z95.5 Presence of coronary angioplasty implant and graft

== ENCOUNTER 2018-09-28 08:51 | Observation (INO) | payer MEDICARE ==
[2018-09-28 08:51] VITALS: BMI 28.3
[2018-09-28] MEDS ORDERED: Albuterol-Ipratrop 3 mg / 0.5 (3 ml) UD ONE ×3 (08:58→10:30)
--- NOTE | 2018-09-28 09:39 | C.PDOC ---
History Of Present Illness 72 year old male with history of COPD and asthma presents to ED with complaint of SOB for the past 2 days. Patient describes that pain as chest tightness. Patient states that he used his albuterol inhaler with no relief. He states his symptoms are associated with orthopnea. Patient denies leg pain/ leg swelling, fever, cough, back pain, abdominal pain, and hemoptysis. Time Seen by Provider: 09/28/18 09:18 Chief Complaint (Nursing): Shortness Of Breath History Per: Patient History/Exam Limitations: no limitations Onset/Duration Of Symptoms: Days (2) Current Symptoms Are (Timing): Still Present Quality: Tightness Exacerbating Factor(s): Laying Flat Current Respiratory Medications: Albuterol Associated Symptoms: Chest Pain. denies: Fever, Leg/Calf Pain, Ankle/Leg Swelling Past Medical History Reviewed: Historical Data, Nursing Documentation, Vital Signs Vital Signs: Last Vital Signs Temp 98.3 F 09/28/18 09:01 Pulse 116 H 09/28/18 09:01 Resp 22 09/28/18 09:01 BP 176/98 H 09/28/18 09:01 Pulse Ox 96 09/28/18 09:07 - Medical History PMH: Asthma, CHF, COPD, Diabetes, Diverticulitis, Emphysema, HTN, Kidney Stones, Peripheral Edema, Chronic Kidney Disease Surgical History: Coronary Stent (X2 PER DAUGHTER) - [facility] Procedures CORONAR ARTERIOGR-2 CATH (12/01/12) ENDOSC POLYPECTOMY OF LG INTEST (12/19/12) ESOPHAGOGASTRODUODENOSCOPY [EGD] W/CLOSED BIOPSY (11/22/12) EXCISION OF ASCENDING COLON, ENDO (07/28/15) EXCISION OF SIGMOID COLON, ENDO (07/28/15) INSERTION OF ONE VASCULAR STENT (12/01/12) INSRT OF DRUG-ELUTING CORON ARTERY STENTS(S) (12/01/12) INTRODUCTION OF ANTI-INFLAM INTO RESP TRACT, VIA OPENING (05/10/18) LEFT HEART CARDIAC CATH (11/29/12) LT HEART ANGIOCARDIOGRAM (11/29/12) PERCUTANEOUS TRANSLUMINAL CORONARY ANGIOPLASTY [PTCA] (12/01/12) PROCEDURE ON SINGLE VESSEL (12/01/12) Family History: States: Unknown Family Hx - Social History Hx Tobacco Use: No Hx Alcohol Use: Yes Hx Substance Use: No - Immunization History Hx Tetanus Toxoid Vaccination: No Hx Influenza Vaccination: Yes (2018) Hx Pneumococcal Vaccination: Yes (2018) Review Of Systems Constitutional: Negative for: Fever Cardiovascular: Positive for: Chest Pain (tightness), Orthopnea Respiratory: Positive for: Shortness of Breath. Negative for: Cough Gastrointestinal: Negative for: Abdominal Pain Musculoskeletal: Negative for: Back Pain, Leg Pain Physical Exam - Physical Exam Appears: Chronically Ill Skin: Normal Color, Warm, Dry Head: Atraumatic, Normacephalic Ear(s): Bilateral: Normal Throat: Normal, No Erythema, No Exudate Neck: Normal ROM, Supple Chest: Symmetrical, No Deformity, No Tenderness Cardiovascular: Rhythm Regular, No Murmur Respiratory: Decreased Breath Sounds, No Accessory Muscle Use, No Rales, No Rhonchi, Wheezing (slight at the bases), Other (mild respiratory distress) Gastrointestinal/Abdominal: Soft, No Tenderness Extremity: No Calf Tenderness, Capillary Refill (<2 seconds), No Swelling Neurological/Psych: Oriented x3, Normal Speech, Normal Cognition ED Course And Treatment - Laboratory Results Result Diagrams: 09/28/18 10:49 09/28/18 10:49 O2 Sat by Pulse Oximetry: 96 (in RA) - Other Rad CXR X-Ray: Interpreted by Me, Viewed By Me Interpretation: Impression: Biapical pleural thickening with upper lobe granulomatous changes. Curvilinear radiopaque densities project over the right lung apex. Mild venous congestion. Patchy increased markings at the left lung base. Bilateral hilar prominence. Heart size within normal limits. Atherosclerotic calcification at the aortic knob. Degenerative changes in the spine and shoulders. Calcific tendinopathy of the right proximal humerus. Medical Decision Making Medical Decision Making: Plan: Labs ordered with cardiac enzymes EKG and CXR ordered for patient Patient given Duoneb and solu-medrol IV Re-eval: Patient feels the same. Feels SOB after 4 nebulizer treatments. Called placed to Dr. Heard. 1258: Dr. Heard agrees to admit patient. 1258: Patient also complains of increased cough. Disposition - Disposition Forms: [employer] (Ukrainian) - PA / GOVERNMENT RELATIONS DIRECTOR / Resident Statement MD/DO has reviewed & agrees with the documentation as recorded. (Layne Rashid) - Scribe Statement The provider has reviewed the documentation as recorded by the Scribe (Layne Rashid) All medical record entries made by the Scribe were at my direction and personally dictated by me. I have reviewed the chart and agree that the record accurately reflects my personal performance of the history, physical exam, medical decision making, and the department course for this patient. I have also personally directed, reviewed, and agree with the discharge instructions and disposition.
[2018-09-28] MEDS: Albuterol-Ipratrop 3 mg / 0.5 (3 ml) UD IH SCH ×2 (09:45→10:00)
[2018-09-28] MEDS ORDERED: Albuterol-Ipratrop 3 mg / 0.5 (3 ml) UD INH STA ×2 (09:52→10:22)
[2018-09-28 10:58] LABS: BASO # 0.1 K/uL (0.0-0.2); BASO % 0.7 % (0.0-2.0); EOS # 0.2 K/uL (0.0-0.7); EOS % 2.4 % (0.0-4.0); HEMOGLOBIN 14.1 g/dL (12.0-18.0); LYMPH # 2.2 K/uL (1.0-4.3); LYMPH % 24.7 % (20.0-40.0); MEAN CELL VOLUME 86.4 fL (80.0-94.0); MEAN CORPUSCULAR HEMOGLOBIN 29.6 pg (27.0-31.0); MEAN CORPUSCULAR HGB CONC 34.3 g/dL (33.0-37.0); MEAN PLATELET VOLUME 8.8 fL (7.2-11.7); MONO # 0.8 K/uL (0.0-0.8); MONO % 8.4 % (0.0-10.0); NEUT # 5.7 K/uL (1.8-7.0); NEUT % 63.8 % (50.0-75.0); NRBC % 0.1 % (0.0-2.0); RBC 4.77 Mil/uL (4.40-5.90); RED CELL DISTRIBUTION WIDTH 15.4 % (11.5-14.5)
[2018-09-28 11:03] LABS: INR 1.2
[2018-09-28 11:37] LABS: ALB/GLOB RATIO 1.4 (1.0-2.1); ALBUMIN 4.2 g/dL (3.5-5.0); ALT/SGPT 10 U/L (21-72); AST/SGOT 25 U/L (17-59); BLOOD UREA NITROGEN 10 mg/dL (9-20); CALCIUM 9.3 mg/dl (8.6-10.4); GFR NON-AFRICAN AMERICAN > 60
[2018-09-28 11:47] LABS: B-TYPE NATRIURETIC PEPTIDE 116 pg/mL (0-900)
[2018-09-28] MEDS ORDERED: Magnesium Sulfate 1 gm in D5W 1 GM/100 ML BAG IV ONE (12:43)
[2018-09-28] MEDS ORDERED: Magnesium Sulfate 1 gm in D5W 1 GM/100 ML BAG IVPB ONE (13:06)
--- NOTE | 2018-09-28 13:07 | RAD ---
Chest x-ray single frontal view History: Shortness of breath. Comparison: 03/31/2018 Findings: Biapical pleural thickening with upper lobe granulomatous changes. Curvilinear radiopaque densities project over the right lung apex. Mild venous congestion. Patchy increased markings at the left lung base. Bilateral hilar prominence. Heart size within normal limits. Atherosclerotic calcification at the aortic knob. Degenerative changes in the spine and shoulders. Calcific tendinopathy of the right proximal humerus. Impression: Biapical pleural thickening with upper lobe granulomatous changes. Curvilinear radiopaque densities project over the right lung apex. Mild venous congestion. Patchy increased markings at the left lung base. Bilateral hilar prominence. Heart size within normal limits. Atherosclerotic calcification at the aortic knob. Degenerative changes in the spine and shoulders. Calcific tendinopathy of the right proximal humerus.
[2018-09-28] MEDS: (Novolog) Insulin Aspart, Recombinant 100 u/ml 10 ml vial SC SCH ×2 (17:03→21:52)
[2018-09-28] MEDS: Potassium Chloride 20 mEq ER Tab PO SCH (17:03)
[2018-09-28] MEDS: MethylPREDNISolone 40 mg Vial IVP SCH (21:43)
[2018-09-29] MEDS: Albuterol-Ipratrop 3 mg / 0.5 (3 ml) UD INH SCH ×6 (00:43→20:02)
--- NOTE | 2018-09-29 07:07 | CP.PCM.PN ---
Subjective - Date & Time of Evaluation Date of Evaluation: 09/29/18 Time of Evaluation: 07:06 - Subjective Subjective: PGY3 note for Dr. Heard's service Pt seen and examined at bedside. Nursing reports no acute events overnight. Patient states he feels better after receiving IV steroids, but still feels SOB when he gets up to go to the bathroom. Patient admits that at home he only has rescue inhalers, and "ran out" of his Breo maintenance inhaler. Patient was able to walk around the nurses station in its entirety and de-saturated to 86% on room air. However, patient needed to stop and rest several times. Patient admits using home oxygen at 3 L. Objective - Vital Signs/Intake and Output Vital Signs (last 24 hours): Temp Pulse Resp BP Pulse Ox 97.7 F 95 H 20 140/67 98 09/28/18 23:39 09/29/18 01:00 09/28/18 23:39 09/28/18 23:39 09/29/18 04:00 Intake and Output: 09/29/18 09/29/18 06:59 18:59 Intake Total 500 Balance 500 - Medications Medications: Current Medications Albuterol/Ipratropium (Duoneb 3 Mg/0.5 Mg (3 Ml) Ud) 3 ml INH RQ4 [facility] Last Admin: 09/29/18 04:17 Dose: Not Given Aspirin (Ecotrin) 81 mg PO DAILY [facility] Gabapentin (Neurontin) 300 mg PO TID [facility] Last Admin: 09/28/18 17:04 Dose: 300 mg Glimepiride (Amaryl) 1 mg PO DAILY [facility] Insulin Aspart (Novolog) 0 unit SC [facility]; Protocol Last Admin: 09/28/18 21:52 Dose: Not Given Lisinopril (Zestril) 10 mg PO DAILY [facility] Last Admin: 09/28/18 17:03 Dose: 10 mg Methylprednisolone (Solu-Medrol) 40 mg IVP Q12 [facility] Last Admin: 09/28/18 21:43 Dose: 40 mg Pantoprazole Sodium (Protonix Ec Tab) 40 mg PO DAILY [facility] Potassium Chloride (K-Dur 20 Meq Er Tab) 20 meq PO DAILY [facility] Last Admin: 09/28/18 17:03 Dose: 20 meq Rosuvastatin Calcium (Crestor) 10 mg PO HS [facility] Last Admin: 09/28/18 21:43 Dose: 10 mg Sitagliptin Phosphate (Januvia) 100 mg PO DAILY [facility] - Labs Labs: 09/28/18 10:49 09/28/18 10:49 PT 13.0 SECONDS (9.7-12.2) H 09/28/18 10:49 INR 1.2 09/28/18 10:49 APTT 33 SECONDS (21-34) 09/28/18 10:49 - Constitutional Appears: Non-toxic, No Acute Distress - Head Exam Head Exam: ATRAUMATIC, NORMAL INSPECTION - Eye Exam Eye Exam: EOMI. absent: Scleral icterus Pupil Exam: PERRL - ENT Exam ENT Exam: Mucous Membranes Moist - Neck Exam Neck Exam: Full ROM Additional comments: no accessory muscle use - Respiratory Exam Respiratory Exam: Decreased Breath Sounds, Wheezes (bases and mid chest bilaterally), NORMAL BREATHING PATTERN. absent: Accessory Muscle Use, Clear to Ausculation Bilateral, Rhonchi - Cardiovascular Exam Cardiovascular Exam: Tachycardia, +S1, +S2 - GI/Abdominal Exam GI & Abdominal Exam: Soft, Normal Bowel Sounds. absent: Tenderness - Extremities Exam Extremities Exam: Normal Inspection - Back Exam Back Exam: absent: CVA tenderness (L), CVA tenderness (R) - Neurological Exam Neurological Exam: Alert, Awake, Oriented x3 - Psychiatric Exam Psychiatric exam: Normal Affect, Normal Mood - Skin Skin Exam: Normal Color, Warm - Additional Findings Additional findings: - Constitutional Appears: Non-toxic, No Acute Distress - Head Exam Head Exam: ATRAUMATIC, NORMAL INSPECTION, NORMOCEPHALIC - Eye Exam Eye Exam: EOMI, Normal appearance Pupil Exam: NORMAL ACCOMODATION - ENT Exam ENT Exam: Mucous Membranes Moist - Neck Exam Neck Exam: Full ROM - Respiratory Exam Respiratory Exam: Wheezes, NORMAL BREATHING PATTERN. absent: Rales, Rhonchi - Cardiovascular Exam Cardiovascular Exam: REGULAR RHYTHM, +S1, +S2 - GI/Abdominal Exam GI & Abdominal Exam: Soft. absent: Tenderness - Extremities Exam Extremities Exam: Full ROM. absent: Joint Swelling, Pedal Edema Additional comments: +left calf tenderness - Back Exam Back Exam: NORMAL INSPECTION - Neurological Exam Neurological Exam: Alert, Awake, Oriented x3 - Psychiatric Exam Psychiatric exam: Normal Affect, Normal Mood - Skin Skin Exam: Dry, Normal Color, Warm Assessment and Plan - Assessment and Plan (Free Text) Plan: COPD Exacerbation Stable, afebrile Troponin negative x 1, BNP 116 EKG (09/28/18): sinus tachy, no st/t wave changes Duonebs q4h [facility] DC Solumedrol 40mg IVP Q12H; convert to PO steroids - Prednisone 40mg tonight, 30mg tomorrow; we will discharge on medrol dose jesu Cxr: Biapical pleural thickening with upper lobe granulomatous changes. Curvilinear radiopaque densities project over the right lung apex. Mild venous congestion. Patchy increased markings at the left lung base. Bilateral hilar prominence. Heart size within normal limits. Atherosclerotic calcification at the aortic knob. Degenerative changes in the spine and shoulders. Calcific tendinopathy of the right proximal humerus. CAD Hx of stent (RICARDO-11/2012) -ASA 81mg PO daily -Crestor 10mg PO HS Recent ECHO (03/2018): Normal EF 55-60%. Concentric LVH DMII -A1C 6.8 (05/2018) -Accuchecks ACHS -Hypoglycemia protocol -ISS-low dose -Continue Januvia 100mg PO daily -Continue Glimepiride 1mg PO daily DM Neuropathy Gabapentin 300mg PO TID Leukocytosis WBC 18.3 Pt on corticosteroid therapy; afebrile Hypokalemia K 3.2 on admission; resolved Kdur 20meq Daily HTN (poor control) Lisinopril 10mg PO daily Start Amlodipine 5mg PO daily Prophylaxis Lovenox 40mg sc daily Protonix 40mg PO daily [facility] Disposition: Pt still with difficulty with short distance ambulation. Will need another day of inpatient monitoring as we transition to PO steroids. Management as per Dr. Félix Jones PGY3
[2018-09-29] MEDS ORDERED: Glucagon Recombinant 1 mg Inj IM PRN (07:12)
[2018-09-29] MEDS ORDERED: Dextrose 50% SYRINGE Inj (50 ml) IV PRN (07:12)
[2018-09-29 07:54] LABS: BASO % 0.3 % (0.0-2.0); HEMOGLOBIN 13.5 g/dL (12.0-18.0); LYMPH # 1.1 K/uL (1.0-4.3); MEAN CELL VOLUME 85.9 fL (80.0-94.0); MEAN CORPUSCULAR HGB CONC 33.7 g/dL (33.0-37.0); MEAN PLATELET VOLUME 8.8 fL (7.2-11.7); MONO # 0.4 K/uL (0.0-0.8); NEUT # 16.8 K/uL (1.8-7.0); NEUT % 91.7 % (50.0-75.0); NRBC % 0.1 % (0.0-2.0); PLATELET COUNT 216 K/uL (130-400); RBC 4.67 Mil/uL (4.40-5.90); RED CELL DISTRIBUTION WIDTH 15.8 % (11.5-14.5)
[2018-09-29 08:05] LABS: WHITE BLOOD COUNT 18.3 K/uL (4.8-10.8)
[2018-09-29 08:14] LABS: ALB/GLOB RATIO 1.3 (1.0-2.1); ALBUMIN 3.9 g/dL (3.5-5.0); ALT/SGPT 20 U/L (21-72); AST/SGOT 20 U/L (17-59); BLOOD UREA NITROGEN 17 mg/dL (9-20); CALCIUM 9.2 mg/dl (8.6-10.4); GFR NON-AFRICAN AMERICAN > 60
[2018-09-29 09:02] LABS: BANDS 2 % (0-2); LYMPHOCYTE 5 % (20-40); MONOCYTE 4 % (0-10); NEUTROPHIL 89 % (50-75); PLATELET ESTIMATE NORMAL (NORMAL); TOTAL CELLS COUNTED 100
[2018-09-29 09:03] LABS: ANISOCYTOSIS SLIGHT; OVALOCYTES SLIGHT
[2018-09-29] MEDS: MethylPREDNISolone 40 mg Vial IVP SCH (09:15)
[2018-09-29] MEDS: Potassium Chloride 20 mEq ER Tab PO SCH (09:16)
[2018-09-29] MEDS: Pantoprazole 40 mg EC Tab PO SCH (09:16)
[2018-09-29] MEDS: (Novolog) Insulin Aspart, Recombinant 100 u/ml 10 ml vial SC SCH ×4 (09:17→21:35)
[2018-09-29] MEDS: Enoxaparin 40 mg Syringe SC SCH (12:20)
--- NOTE | 2018-09-29 20:39 | CARD ---
APPROVED REPORT Date of service: 09/28/2018 EKG Measurement Heart [id number] <Conclusion> Normal sinus rhythm Left anterior fascicular block Abnormal ECG
[2018-09-30 00:15] VITALS: RESP 20; O2SAT 98
[2018-09-30] MEDS: Albuterol-Ipratrop 3 mg / 0.5 (3 ml) UD INH SCH ×3 (00:52→09:45)
--- NOTE | 2018-09-30 06:27 | HP ---
HISTORY OF PRESENT ILLNESS: A 72-year-old male admitted to the hospital with chief complaint of shortness of breath, wheeze, cough, fatigue, tiredness. The patient came to the ER, advised admission. The patient has a history of diabetes, hypertension, coronary artery disease, COPD, . PHYSICAL EXAMINATION: GENERAL: The patient is awake, alert and oriented. VITAL SIGNS: Temperature 98, pulse 90. HEENT: Within normal limits. NECK: Supple. CHEST: Symmetrical. Decreased air entry bilaterally. Wheeze bilaterally. HEART: Regular. ABDOMEN: Soft. EXTREMITIES: No edema. ASSESSMENT AND PLAN: no active disease. The patient suffers from COPD, bronchitis. The patient to get bed rest, supportive care. Carlos Heard MD
--- NOTE | 2018-09-30 07:17 | CP.PCM.PN ---
Subjective - Date & Time of Evaluation Date of Evaluation: 09/30/18 Time of Evaluation: 09:00 - Subjective Subjective: Medicine Progress Note for Dr. Heard's Service Patient was seen and examined at bedside. Patient states he feels much better. Patient complains of a sore throat. Patient denies chest pain, shortness of breath, fever, chills, nausea or vomiting. Objective - Vital Signs/Intake and Output Vital Signs (last 24 hours): Temp Pulse Resp BP Pulse Ox 97.4 F L 97 H 20 113/61 98 09/29/18 23:48 09/29/18 23:48 09/29/18 23:48 09/29/18 23:48 09/29/18 23:48 Intake and Output: 09/30/18 09/30/18 06:59 18:59 Intake Total 500 Balance 500 - Medications Medications: Current Medications Albuterol/Ipratropium (Duoneb 3 Mg/0.5 Mg (3 Ml) Ud) 3 ml INH RQ4 [facility] Last Admin: 09/30/18 03:35 Dose: Not Given Aspirin (Ecotrin) 81 mg PO DAILY [facility] Last Admin: 09/29/18 09:15 Dose: 81 mg Dextrose (Dextrose 50% Inj) 0 ml IV STAT PRN; Protocol PRN Reason: Hypoglycemia Protocol Dextrose (Glutose 15) 0 gm PO ONCE PRN; Protocol PRN Reason: Hypoglycemia Protocol Enoxaparin Sodium (Lovenox) 40 mg SC DAILY [facility] Last Admin: 09/29/18 12:20 Dose: 40 mg Gabapentin (Neurontin) 300 mg PO TID [facility] Last Admin: 09/29/18 17:06 Dose: 300 mg Glimepiride (Amaryl) 1 mg PO DAILY [facility] Last Admin: 09/29/18 09:15 Dose: 1 mg Glucagon (Glucagen Diagnostic Kit) 0 mg IM STAT PRN; Protocol PRN Reason: Hypoglycemia Protocol Dextrose (Dextrose 5% In Water 1000 Ml) 1,000 mls @ 0 mls/hr IV .Q0M PRN; Protocol PRN Reason: Hypoglycemia Protocol Insulin Aspart (Novolog) 0 unit SC ACHS [facility]; Protocol Last Admin: 09/29/18 21:35 Dose: 3 unit Lisinopril (Zestril) 10 mg PO DAILY [facility] Last Admin: 09/29/18 09:15 Dose: 10 mg Pantoprazole Sodium (Protonix Ec Tab) 40 mg PO DAILY [facility] Last Admin: 09/29/18 09:16 Dose: 40 mg Potassium Chloride (K-Dur 20 Meq Er Tab) 20 meq PO DAILY [facility] Last Admin: 09/29/18 09:16 Dose: 20 meq Prednisone (Prednisone Tab) 10 mg PO BID [facility] Last Admin: 09/29/18 17:07 Dose: 10 mg Rosuvastatin Calcium (Crestor) 10 mg PO HS [facility] Last Admin: 09/29/18 21:35 Dose: 10 mg Sitagliptin Phosphate (Januvia) 100 mg PO DAILY [facility] Last Admin: 09/29/18 09:16 Dose: 100 mg - Labs Labs: 09/29/18 07:48 09/29/18 07:45 PT 13.0 SECONDS (9.7-12.2) H 09/28/18 10:49 INR 1.2 09/28/18 10:49 APTT 33 SECONDS (21-34) 09/28/18 10:49 - Constitutional Appears: No Acute Distress - Head Exam Head Exam: ATRAUMATIC, NORMAL INSPECTION - Eye Exam Eye Exam: EOMI, Normal appearance - ENT Exam ENT Exam: Mucous Membranes Moist - Respiratory Exam Respiratory Exam: Clear to Ausculation Bilateral, NORMAL BREATHING PATTERN. absent: Rhonchi, Wheezes - Cardiovascular Exam Cardiovascular Exam: REGULAR RHYTHM, +S1, +S2 - GI/Abdominal Exam GI & Abdominal Exam: Soft, Normal Bowel Sounds. absent: Tenderness - Extremities Exam Extremities Exam: Normal Inspection - Neurological Exam Neurological Exam: Alert, Awake, Oriented x3 - Psychiatric Exam Psychiatric exam: Normal Affect - Skin Skin Exam: Normal Color Assessment and Plan - Assessment and Plan (Free Text) Assessment: COPD Exacerbation - resolved Stable, afebrile Troponin negative x 1, BNP 116 EKG (09/28/18): sinus tachy, no st/t wave changes Duonebs q4h juani DC Solumedrol 40mg IVP Q12H; convert to PO steroids - Prednisone 40mg tonight, 30mg tomorrow; we will discharge on medrol dose jesu Cxr: Biapical pleural thickening with upper lobe granulomatous changes. Curvilinear radiopaque densities project over the right lung apex. Mild venous congestion. Patchy increased markings at the left lung base. Bilateral hilar prominence. Heart size within normal limits. Atherosclerotic calcification at the aortic knob. Degenerative changes in the spine and shoulders. Calcific tendinopathy of the right proximal humerus. CAD Hx of stent (RICARDO-11/2012) -ASA 81mg PO daily -Crestor 10mg PO HS Recent ECHO (03/2018): Normal EF 55-60%. Concentric LVH Lipid Panel: Total Cholesterol 151; LDL 112; HDL 3; Triglycerides 138 DMII -A1C 6.8 (05/2018); hA1c 7.8 -Accucheck ACHS -Hypoglycemia protocol -ISS-low dose -Continue Januvia 100mg PO daily -Continue Glimepiride 1mg PO daily DM Neuropathy Gabapentin 300mg PO TID Leukocytosis WBC 18.3 Pt on corticosteroid therapy; afebrile Hypokalemia K 3.2 on admission; resolved Kdur 20meq Daily HTN (poor control) Lisinopril 10mg PO daily Start Amlodipine 10mg PO daily Prophylaxis Lovenox 40mg sc daily Protonix 40mg PO daily SCDs Disposition: Patient discharged home. Discharge instructions: Please continue home medications. Please start new medications: - z-Pack - Amlodipine 10mg one tablet daily - Prednisone 10mg one tablet daily for 5 days. Please follow up with your primary physician 1-2 weeks. Management as per Dr. Félix Garcia PGY-2
[2018-09-30 07:19] LABS: BASO # 0.1 K/uL (0.0-0.2); BASO % 0.3 % (0.0-2.0); EOS % 0.1 % (0.0-4.0); HEMOGLOBIN 13.1 g/dL (12.0-18.0); LYMPH # 1.5 K/uL (1.0-4.3); LYMPH % 8.1 % (20.0-40.0); MEAN CELL VOLUME 85.7 fL (80.0-94.0); MEAN CORPUSCULAR HEMOGLOBIN 28.9 pg (27.0-31.0); MEAN CORPUSCULAR HGB CONC 33.7 g/dL (33.0-37.0); MEAN PLATELET VOLUME 8.8 fL (7.2-11.7); MONO % 5.4 % (0.0-10.0); NEUT # 16.4 K/uL (1.8-7.0); NEUT % 86.1 % (50.0-75.0); NRBC % 0.1 % (0.0-2.0); PLATELET COUNT 216 K/uL (130-400); RBC 4.53 Mil/uL (4.40-5.90)
[2018-09-30 07:46] LABS: ALB/GLOB RATIO 1.4 (1.0-2.1); ALBUMIN 3.7 g/dL (3.5-5.0); ALT/SGPT 14 U/L (21-72); AST/SGOT 18 U/L (17-59); BLOOD UREA NITROGEN 23 mg/dL (9-20); CALCIUM 8.5 mg/dl (8.6-10.4); GFR NON-AFRICAN AMERICAN > 60; HDL CHOLESTEROL 36 mg/dL (30-70)
[2018-09-30 07:56] LABS: LDL CHOLESTEROL 112 mg/dL (0-129)
[2018-09-30] MEDS: (Novolog) Insulin Aspart, Recombinant 100 u/ml 10 ml vial SC SCH (08:11)
[2018-09-30 08:41] VITALS: PULSE 96
[2018-09-30 08:56] LABS: ANISOCYTOSIS SLIGHT; LYMPHOCYTE 9 % (20-40); MONOCYTE 3 % (0-10); NEUTROPHIL 88 % (50-75); NUCLEATED RED BLOOD CELL 1 % (0-0); PLATELET ESTIMATE NORMAL (NORMAL); TOTAL CELLS COUNTED 100
[2018-09-30 09:10] VITALS: BP 156/82; TEMP 97.5
[2018-09-30] MEDS: Pantoprazole 40 mg EC Tab PO SCH (10:52)
[2018-09-30] MEDS: Enoxaparin 40 mg Syringe SC SCH (10:52)
[2018-09-30] MEDS: Potassium Chloride 20 mEq ER Tab PO SCH (10:53)
== END 2018-09-30 12:45 | disposition home or self-care (01) ==
LOC: C.ER 08:51 → C.9E 13:04 → C.5S 14:40
PROVIDERS: ADMIT Internal Medicine Pulmonary Disease; ATTEND Internal Medicine Pulmonary Disease
DX: I13.0 Hypertensive heart and chronic kidney disease with heart failure and stage 1 through stage 4 chronic kidney disease, or unspecified chronic kidney disease (principal); I50.9 Heart failure, unspecified; I25.10 Atherosclerotic heart disease of native coronary artery without angina pectoris; E87.6 Hypokalemia; E11.22 Type 2 diabetes mellitus with diabetic chronic kidney disease; D72.829 Elevated white blood cell count, unspecified; Z79.84 Long term (current) use of oral hypoglycemic drugs; N18.9 Chronic kidney disease, unspecified; J43.9 Emphysema, unspecified
CPT/HCPCS: 36415; 71045; 80053; 80061; 82948; 83036; 83735; 83880; 84484; 85025; 85610; 85730; 93005; 94640; 96360; 97116; 97162; 97530; 99285; G0378; G8978; G8979; J1650; J2920; J2930; J3475